=== PATIENT | female | born 1990 ===

== ENCOUNTER 2020-07-05 16:16 | Outpatient (CLI) | payer MEDICAID ==
[2020-07-05 17:05] VITALS: BP 98/56
[2020-07-05] MEDS ORDERED: LACTATED RINGERS 1,000 ML IV ONE (17:49)
--- NOTE | 2020-07-05 18:11 | Ultrasound Report ---
ULTRASOUND OBSTETRIC LIMITED ULTRASOUND BIOPHYSICAL PROFILE INDICATION / CLINICAL INFORMATION: BPP. Clinical Gestational Age (GA): 40.3 weeks.days COMPARISON: None available. FINDINGS: BREATHING MOVEMENT = 2 GROSS BODY MOVEMENT = 2 TONE = 2 QUALITATIVE AMNIOTIC FLUID VOLUME = 2 TOTAL BIOPHYSICAL SCORE = 8/8 HEART RATE (beats per minute): 137 AMNIOTIC FLUID INDEX (cm) = largest pocket = 7.9 cm. ADDITIONAL FINDINGS: None. IMPRESSION: 1. Biophysical Score = 8/8 Signer Name: John Chowdhury MD Signed: 07/05/2020 6:07 PM Workstation Name: [id number]
--- NOTE | 2020-07-05 18:12 | Ultrasound Report ---
ULTRASOUND OBSTETRIC LIMITED INDICATION / CLINICAL INFORMATION: TASHIA. Clinical Gestational Age (GA): 40.3 weeks.days COMPARISON: None available. FINDINGS: HEART RATE (beats per minute): 140 AMNIOTIC FLUID INDEX (cm) = 23.3 (normal = 7-24 cm) PRESENTATION: Cephalic. ADDITIONAL FINDINGS: None. IMPRESSION: 1. No significant abnormality. 2. Amniotic fluid index equals 23.3 cm. Signer Name: John Chowdhury MD Signed: 07/05/2020 6:07 PM Workstation Name: [id number]
== END 2020-07-05 19:53 | disposition home or self-care (01) ==
LOC: TRG 16:16 → APU 16:17 → TRG 19:53
PROVIDERS: ATTEND Obstetrics & Gynecology
DX: O47.1 False labor at or after 37 completed weeks of gestation (principal); Z3A.40 40 weeks gestation of pregnancy
CPT/HCPCS: 59025; 76815; 76819; 96360; 96361; J7120; 59020